=== PATIENT | female | born 1990 | race Caucasian/White ===

== ENCOUNTER 2020-12-30 20:53 | Emergency (ER) | payer OTHER ==
[2020-12-30 21:00] VITALS: BP 113/81; PULSE 98; TEMP 98.1; BMI 32.3
[2020-12-30] MEDS ORDERED: KETOROLAC TROMETHAMINE 60 MG/2 ML VIAL IM ONE (21:36)
[2020-12-30] MEDS ORDERED: diazePAM 2 MG TABLET PO ONE (21:36)
[2020-12-30] MEDS ORDERED: LIDOCAINE 5% TOPICAL PATCH TP ONE (21:36)
[2020-12-30] MEDS ORDERED: DEXAMETHASONE LIQUID 0.5 MG/5 ML PO ONE (21:36)
[2020-12-30] MEDS ORDERED: LIDOCAINE 5% TOPICAL PATCH ONE (21:46)
[2020-12-30] MEDS ORDERED: DEXAMETHASONE SOD PHOSPHATE 10 MG/1 ML VIAL ONE (21:46)
[2020-12-30] MEDS ORDERED: diazePAM 2 MG TABLET ONE (21:47)
[2020-12-30] MEDS ORDERED: KETOROLAC TROMETHAMINE 30 MG/1 ML VIAL ONE (21:47)
[2020-12-31] MEDS ORDERED: LIDOCAINE PATCH REMOVAL MC ONE (10:00)
== END 2020-12-30 22:57 | disposition home or self-care (01) ==
LOC: JERFT 20:53
PROC: 3E023GC Introduction of Other Therapeutic Substance into Muscle, Percutaneous Approach (ICD-10-PCS; principal; 2020-12-30)
DX: M54.41 Lumbago with sciatica, right side (principal)
CPT/HCPCS: 72100-TC-FY; 99284-25